=== PATIENT | female | born 1955 | race Caucasian/White ===

== ENCOUNTER 2019-07-23 12:45 | Outpatient (CLI) | payer MEDICARE ==
[2019-07-23] MEDS ORDERED: ISOVUE-370 76%-LOCM 1 ML ONE (12:48)
--- NOTE | 2019-07-23 14:36 | CT ---
CT CHEST WITH CONTRAST CLINICAL INDICATION: Left-sided chest pain for past few months. Patient states sharp stabbing pain. COMPARISON: None FINDINGS: Aorta: Vascular calcifications are seen in the thoracic aorta, but the thoracic aorta is normal in ca liber without evidence of an aortic dissection. Vascular calcifications are seen in the coronary arteries as well. Lungs: There is biapical pleural and parenchymal scarring present. There are scattered linear densiti es seen primarily at the periphery likely due to mild chronic lung changes and areas of atelectasis. No consolidation or pleural fluid is seen. Mediastinum: No enlarged lymph nodes are seen by CT size criteria. Thyroid gland: Normal in appearance for CT imaging. Osseous structures: Degenerative changes are seen in thoracic spine. There is partial visualization o f postsurgical changes lower cervical spine related to anterior cervical fusion. Chest wall: No abnormality visualized. Upper abdomen: Postcholecystectomy changes are noted. A 2.3 cm hypodense lesion is seen in the latera l aspect right hepatic lobe demonstrating attenuation coefficients most compatible with a hepatic cyst. Vascular calcifications and atherosclerotic plaque are partially imaged in the abdominal aorta. IMPRESSION: 1. Mild chronic lung changes and areas of atelectasis. No discrete pulmonary nodule, mass, or area of consolidation is seen in the lungs bilaterally. 2. Right hepatic lobe cyst. 3. Cholecystectomy.
== END 2019-07-23 12:46 | disposition home or self-care (01) ==
LOC: BICCT 12:45
PROVIDERS: ATTEND Internal Medicine Cardiovascular Disease
DX: R07.9 Chest pain, unspecified (principal); K76.89 Other specified diseases of liver; Z90.49 Acquired absence of other specified parts of digestive tract
CPT/HCPCS: 71260; 82565; Q9966

== ENCOUNTER 2019-10-24 06:24 | Day surgery (SDC) | payer MEDICARE, OTHER ==
[2019-10-21 10:59] VITALS: BMI 21.2
[2019-10-24 07:23] LABS: #Eosinphils 0.2 thou/uL (0.0-0.7); #Lymphocytes 1.5 thou/uL (1.20-3.40); #Monocytes 0.6 thou/uL (0.11-0.59); #Neutrophils 3.3 thou/uL (1.40-6.50); %Basophils 0.7 % (0.0-1.0); %Eosinophils 3.6 % (0.0-10.0); %Lymphocytes 26.8 % (21.0-51.0); %Monocytes 11.4 % (0.0-10.0); %Neutrophils 57.5 % (42.0-75.0); Hemoglobin 14.3 g/dL (12.0-16.0); Mean Corpuscular HGB CONC 33.8 g/dL (32.0-36.0); Mean Corpuscular Hemoglobin 33.7 pg (27.0-31.0); Mean Corpuscular Volume 99.6 fL (78.0-98.0); Mean Platelet Volume 8.2 fL (7.4-10.4); Platelet Count 282 thou/uL (130-400); RBC Distribution Width 12.4 % (11.5-14.5); Red Blood Cell (RBC) Count 4.26 mill/uL (4.20-5.40); White Blood Cell (WBC) Count 5.7 thou/uL (4.8-10.8)
[2019-10-24] MEDS ORDERED: Nitroglycerin 100MG/250ML BOT 250 ML ONE (08:01)
[2019-10-24] MEDS ORDERED: Heparin 10,000 UNITS/1 ML VIAL ONE (08:01)
[2019-10-24] MEDS ORDERED: Verapamil 5 MG/2 ML VIAL ONE (08:01)
[2019-10-24] MEDS ORDERED: Heparin (Artline) 1,000 ML ONE (08:01)
[2019-10-24 08:02] LABS: ALT (SGPT) 7 U/L (8-55); AST (SGOT) 27 U/L (5-34); Albumin 4.2 g/dL (3.4-4.8); Alkaline Phosphatase 60 U/L (40-110); Anion Gap 15 mmol/L (10-20); BUN (Urea Nitrogen) 20 mg/dL (9.8-20.1); Bilirubin, Total 0.4 mg/dL (0.2-1.2); Calc. Creatinine Clearance 67 mL/min (70-130); Calcium 9.6 mg/dL (7.8-10.44); Carbon Dioxide 23 mmol/L (23-31); Cardiac Risk 2.2 (Less than 4.5); Chloride 102 mmol/L (98-107); Cholesterol 196 mg/dl (< 200 Desired); Estimated GFR-MDRD 82; Globulin 3.3 g/dL (2.4-3.5); Glucose 97 mg/dL (80-115); HDL Cholesterol 89 mg/dL (>60 Neg Risk); LDL Cholesterol, Calculated 92 mg/dL; Potassium 4.5 mmol/L (3.5-5.1); Protein, Total 7.5 g/dL (6.0-8.3); Sodium 135 mmol/L (136-145); Triglycerides 74 mg/dL (Less than 150)
[2019-10-24] MEDS ORDERED: Fentanyl 100 MCG/2 ML VIAL ONE (08:47)
[2019-10-24] MEDS ORDERED: Midazolam HCl 2 mg/2 ml Vial ONE (08:47)
[2019-10-24] MEDS ORDERED: Iopamidol 370 76% 100 ML VIAL ONE (10:34)
== END 2019-10-24 13:20 | disposition home or self-care (01) ==
LOC: CCL 06:24
PROVIDERS: ATTEND Internal Medicine Cardiovascular Disease
PROC: 4A023N7 Measurement of Cardiac Sampling and Pressure, Left Heart, Percutaneous Approach (ICD-10-PCS; principal; 2019-10-24)
PROC: B2111ZZ Fluoroscopy of Multiple Coronary Arteries using Low Osmolar Contrast (ICD-10-PCS; 2019-10-24)
DX: R07.89 Other chest pain (principal); I25.10 Atherosclerotic heart disease of native coronary artery without angina pectoris; R55 Syncope and collapse; I27.20 Pulmonary hypertension, unspecified; F17.210 Nicotine dependence, cigarettes, uncomplicated; I10 Essential (primary) hypertension; Z79.82 Long term (current) use of aspirin; Z79.899 Other long term (current) drug therapy
CPT/HCPCS: 80053; 80061; 85025; 93458; 99152; C1769; J1644; J2250; J3010; Q9967